=== PATIENT | male | born 1970 | race Caucasian/White ===

== ENCOUNTER 2018-01-07 17:29 | Emergency (ER) | payer OTHER ==
--- NOTE | 2018-01-07 18:21 | ED Physician Documentation ---
Upper Extremity Injury - HISTORIAN Historian: patient - HPI Stated Complaint: laceration Chief Complaint: Upper Extremity Injury Onset: just prior to arrival Where: home Severity: mild Modifying Factors: pain on movement - ROS CONST: no problems - PAST HX Past History: Rt handed, diabetes Type 2, other (colonic polyps, s/p right rotator cuff tear) Immunizations: tetanus (up-to-date) Allergies/Adverse Reactions: Allergies Allergy/AdvReac Type Severity Reaction Status Date / Time hydrocodone [From Vicodin] Allergy Throat Verified 01/07/18 18:29 Swelling morphine Allergy Vomiting Verified 01/07/18 18:29 Home Medications: Ambulatory Orders Medication Instructions Recorded Cephalexin [Keflex] 500 mg PO TID #21 capsule 01/07/18 Insulin Glargine,Hum.rec.anlog 30 units SUBCUT BID 01/07/18 [Lantus Solostar] - SOCIAL HX Smoking History: non-smoker, chew (1/2 can / day) Alcohol Use: rarely Drug Use: none - FAMILY HX Family History: no significant history - VITAL SIGNS Vital Signs: Vital Signs Temp Pulse Resp BP Pulse Ox 98.2 F 68 12 126/76 100 01/07/18 17:46 01/07/18 19:22 01/07/18 19:22 01/07/18 19:22 01/07/18 19:22 - REVIEWED ASSESSMENTS Nursing Assessment Reviewed: Yes Vitals Reviewed: Yes Procedures Wound Location: other (finger) Wound Length: 1,2cm Wound Explored: clean Irrigated w/ Saline (ccs): 15 Betadine Prep?: No (Hexadyne) Anesthesia: 2% Lidocaine Volume of Anesthetic: 1.8 Wound Debrided: none Wound Repaired With: sutures Suture Size/Type: 5:0 Number of Sutures: 2 Layer Closure?: No ED Results Lab/Radiology - Orders Orders: ED Orders Category Date Time Status FINGER 2 VIEWS OR MORE [RAD] Stat Exams 01/07/18 Completed Bupivacaine HCl/Pf [Marcaine 0.25% Vial] Med 01/07/18 19:16 Discontinued 10 mg IJ NOW ONE Bupivacaine HCl/Pf [Marcaine 0.5%] Med 01/07/18 18:32 Discontinued 50 mg IV .STK-MED ONE Cephalexin [Keflex] Med 01/07/18 19:12 Discontinued 500 mg .ROUTE .STK-MED ONE Cephalexin [Keflex] Med 01/07/18 19:13 Discontinued 500 mg PO NOW ONE Lidocaine 1% 5ml(IM or SUTURE) [Xylocaine] Med 01/07/18 18:22 Discontinued 50 mg IJ NOW ONE Upper Extremity Injury Physic - Physical Exam General Appearance: alert, mild distress Hand: nail injury (left 5th diget), soft tissue tenderness (laceration to the distal finger), swelling Wrist: normal inspection, non-tender, no evidence of injury Neuro/Vascular/Tendon: no vascular compromise, motor nml, sensation nml Resp/CVS: chest non-tender, no resp. distress, lungs clear, reg. rate & rhythm Discharge Clincal Impression: Laceration of finger Qualifiers: Encounter type: initial encounter Finger: little finger Damage to nail status: with damage Foreign body presence: without foreign body Laterality: left Qualified Code(s): S61.317A - Laceration without foreign body of left little finger with damage to nail, initial encounter Prescriptions: Cephalexin [Keflex] 500 mg PO TID #21 capsule Referrals: Rocky Ellis MD [Primary Care Provider] - 2 Days Additional Instructions: Keep wound clean and dry May run water over it, do not soak Dress with HARJIT Remove sutures on Monday. Watch for infection. Take cephalexin as instructed 3 times Condition: Stable Disposition: 01 HOME, SELF-CARE Decision to Admit: NO Date of Decison to Admit: 01/07/18 Decision Time: 19:19
[2018-01-07] MEDS: BUPIVACAINE HCL/PF 5 MG/ML 10ML VIAL IV ONE (18:35)
[2018-01-07] MEDS: Lidocaine 1% 5ml(IM or SUTURE)(PAIN CLINIC) IJ ONE (18:52)
[2018-01-07] MEDS: CEPHALEXIN 250 MG CAPSULE ONE (19:15)
[2018-01-07] MEDS: BUPIVACAINE HCL/PF 2.5 MG/ML 10ML VIAL IJ ONE (19:18)
[2018-01-07] MEDS: CEPHALEXIN 250 MG CAPSULE PO ONE (19:20)
[2018-01-07 19:28] VITALS: BP 126/76
--- NOTE | 2018-01-08 06:45 | Diagnostic Imaging Report ---
ROBERTO CARLOS VARELA [facility] [address] [facility] [address] [address] Report Submission Date: Jan 07, 2018 7:15:51 PM CDT Patient Study Name: FERMIN ALTAMIRANO Date: Jan 07, 2018 6:56:30 PM CDT Modality Type: DX Gender: M Description: UPPER EXTREMITY : 74 Institution: [facility] Physician: ROBERTO CARLOS VARELA 3 views left hand Clinical history: Left hand pain Findings: No acute fracture or dislocation is identified. Alignment is normal. Impression: Negative Electronically signed on Jan 07, 2018 7:15:51 PM CDT by: Jeff VICTORIA
== END 2018-01-07 19:25 | disposition home or self-care (01) ==
LOC: ED 17:29
DX: S61.317A Laceration without foreign body of left little finger with damage to nail, initial encounter (principal); X58.XXXA Exposure to other specified factors, initial encounter; Y92.018 Other place in single-family (private) house as the place of occurrence of the external cause; Y93.9 Activity, unspecified; Y99.9 Unspecified external cause status
CPT/HCPCS: 73140; J3490; 12001; 96372

== ENCOUNTER 2018-02-21 08:18 | Emergency (ER) | payer OTHER ==
--- NOTE | 2018-02-21 08:34 | ED Physician Documentation ---
General Adult - HISTORIAN Historian: patient, paramedics - [facility] Stated Complaint: Low Blood Sugar Chief Complaint: General Adult Additional Information: Arrived at work this am at [employer], was still sitting in his truck when he became sweaty, shaky and hot. His blood sugar was in the 80's. Second time this week he has had episode of hypoglycemia. Lantus was increased last week from 30 U to 35 U. He had [place] chili last night for supper. Had two donuts, two pieces roth pizza, and semi-sweet teat for breakfast. Says FSG was 124 when he took his insulin this am. Feels better now, but still feels a bit shaky. FSG 139 in ER. Diagnosed with IDDM 2 yers ago; HgbA1C then was 10+, recently 7+. No other modifying factors or associated events. - ROS CONST: sweating. denies: recent illness - PAST HX Past History: other (above) Allergies/Adverse Reactions: Allergies Allergy/AdvReac Type Severity Reaction Status Date / Time hydrocodone [From Vicodin] Allergy Throat Verified 02/21/18 08:29 Swelling morphine Allergy Vomiting Verified 02/21/18 08:29 Home Medications: Ambulatory Orders Medication Instructions Recorded Insulin Glargine,Hum.rec.anlog 35 units SUBCUT BID 01/07/18 [Lantus Solostar] - SOCIAL HX Smoking History: non-smoker - FAMILY HX Family History: No - VITAL SIGNS Vital Signs: Vital Signs Temp Pulse Resp BP Pulse Ox 97.5 F L 82 18 120/78 99 02/21/18 08:18 02/21/18 08:18 02/21/18 08:18 02/21/18 08:18 02/21/18 08:18 - REVIEWED ASSESSMENTS Nursing Assessment Reviewed: Yes Vitals Reviewed: Yes Progress - Progress Progress: Report Submission Date: Feb 21, 2018 9:25:49 AM CDT Patient Study Name: FERMIN ALTAMIRANO Date: Feb 21, 2018 8:52:23 AM CDT Modality Type: DX Gender: M Description: CHEST : 74 Institution: [facility] Physician: GRZEGORZ YANEZ - ER Examination: PA and lateral chest. History: Evaluate lung salazar. PT STATES HIS BLOOD SUGAR DROPPED THIS AM AND THIS WAS THE SECOND ENCOUNTER THIS WEEK. PT STATES HE IS DIABETIC. (Hx) Comparison exam: None provided. Findings: PA and lateral views of the chest demonstrates a normal cardiac and mediastinal silhouette. Elevated right hemidiaphragm. No focal infiltrate. No blunting of the costophrenic margins. Osseous structures are appropriate for age. Impression: No acute pulmonary process. Electronically signed on Feb 21, 2018 9:25:49 AM CDT by: Andrea Felix All labs reassuring, orthostatics w/o significant changes. Serial TropI's negative. ED Results Lab/Radiology - Orders Orders: ED Orders Category Date Time Status Continuous EKG monitoring Q1H Care 02/21/18 08:[address] IV Lock 1T Care 02/21/18 08:23 Active CHEST 2VIEW [RAD] Stat Exams 02/21/18 Ordered CBC/PLATELET/DIFF Routine Lab 02/21/18 Received CMP Routine Lab 02/21/18 Received TROPONIN I (cTnI) Stat Lab 02/21/18 Received URINALYSIS Routine Lab 02/21/18 Ordered Chem Sticks Med 02/21/18 08:25 Ordered 1 each MC CHEMQ PRN EKG WITH COMPARISON Stat Ther 02/21/18 Ordered General Adult Physical Exam - PHYSICAL EXAM GENERAL APPEARANCE: obese EENT: eye inspection normal, ENT inspection normal, pharynx normal NECK: normal inspection, supple RESPIRATORY: no resp distress, breath sounds normal CVS: reg rate & rhythm, heart sounds normal, no murmur ABDOMEN: soft, normal bowel sounds, non-tender BACK: normal inspection, no CVA tenderness, other (no vertebral tenderness) SKIN: warm/dry, normal color, other (intact on feet) EXTREMITIES: no evidence of injury, no edema NEURO: CN's nml as tested, motor nml, sensation nml, cognition normal Discharge Clincal Impression: Hypoglycemia Referrals: Rocky Ellis MD [Primary Care Provider] - 2 Days Condition: Good Disposition: 01 HOME, SELF-CARE Decision to Admit: NO Decision Time: 12:00
[2018-02-21 08:36] LABS: BASOPHILS % 0.4 (0.0-1.5); EOSINOPHILS % 3.3 % (0.0-6.8); MEAN CORPUSCULAR HEMOGLOBIN 28.7 pg (28.0-34.0); MONOCYTES % 8.3 % (0.0-11.0); NEUTROPHILS # 3.5 # k/uL (1.4-7.7)
[2018-02-21 09:01] LABS: eGFR (Non-African) > 60
[2018-02-21 10:38] LABS: APPEARANCE,URINE CLEAR (CLEAR); COLOR,URINE YELLOW (YELLOW); OCCULT BLOOD,URINE NEGATIVE (NEGATIVE); PH URINE 5.5 (5.0 - 8.0); UROBILINOGEN URINE 0.2 Eu (0.2-1.0)
[2018-02-21 12:09] VITALS: BP 127/86
--- NOTE | 2018-02-22 08:40 | Diagnostic Imaging Report ---
GRZEGORZ YANEZ [facility] [address] [facility] [address] [address] Report Submission Date: Feb 21, 2018 9:25:49 AM CDT Patient Study Name: FERMIN ALTAMIRANO Date: Feb 21, 2018 8:52:23 AM CDT Modality Type: DX Gender: M Description: CHEST : 74 Institution: [facility] Physician: GRZEGORZ YANEZ Examination: PA and lateral chest. History: Evaluate lung salazar. PT STATES HIS BLOOD SUGAR DROPPED THIS AM AND THIS WAS THE SECOND ENCOUNTER THIS WEEK. PT STATES HE IS DIABETIC. (Hx) Comparison exam: None provided. Findings: PA and lateral views of the chest demonstrates a normal cardiac and mediastinal silhouette. Elevated right hemidiaphragm. No focal infiltrate. No blunting of the costophrenic margins. Osseous structures are appropriate for age. Impression: No acute pulmonary process. Electronically signed on Feb 21, 2018 9:25:49 AM CDT by: Andrea VICTORIA
== END 2018-02-21 12:06 | disposition home or self-care (01) ==
LOC: ED 08:18
DX: E16.2 Hypoglycemia, unspecified (principal); R61 Generalized hyperhidrosis
CPT/HCPCS: 71046; 80053; 81002; 84484; 85025; 99283